=== PATIENT | male | born 1970 ===

== ENCOUNTER 2019-03-12 10:21 | Emergency (ER) | payer OTHER ==
[~2019-03-12] VITALS: Ht 170.2 cm; Wt 68.0 kg
[2019-03-12] MEDS ORDERED: SKELAXIN800 MG PO (15:09)
== END 2019-03-12 15:19 | disposition home or self-care (01) ==
LOC: ER 10:21
DX: S20.212A Contusion of left front wall of thorax, initial encounter (principal); S20.211A Contusion of right front wall of thorax, initial encounter; V49.9XXA Car occupant (driver) (passenger) injured in unspecified traffic accident, initial encounter; Y93.89 Activity, other specified; Y92.488 Other paved roadways as the place of occurrence of the external cause; Y99.8 Other external cause status